=== PATIENT | female | born 1970 | race Two or more races ===

== ENCOUNTER 2018-03-02 09:10 | Day surgery (SDC) | payer OTHER ==
[2018-03-02] VITALS (11 sets, daily range): BP systolic 99–127; BP diastolic 51–66
[~2018-03-02] VITALS: Ht 152.4 cm; Wt 54.4 kg
[~2018-03-02 09:10] MED LIST: ADVIL200 M2 ORAL; ceFAZolin 1gm in D5W 55ml IVP ONE; celeBREX 200mg Cap **SURGERY PATIENTS ONLY ORAL ONE; oxyCONTIN 20mg tab ORAL ONE
[2018-03-02] MEDS ORDERED: celeBREX 200mg Cap **SURGERY PATIENTS ONLY ORAL ONE (09:58)
[2018-03-02] MEDS ORDERED: oxyCONTIN 20mg tab ORAL ONE (09:58)
--- NOTE | 2018-03-02 11:08 | Pre-Procedure Note/Attestation ---
Pre-Procedure Note/Attestation Complete Prior to Procedure Planned Procedure: right Procedure Narrative: shoulder arthroscopy, sad Indications for Procedure Pre-Operative Diagnosis: right shoulder impingement Attestation I attest that I discussed the nature of the procedure; its benefits; risks and complications; and alternatives (and the risks and benefits of such alternatives ), prior to the procedure, with the patient (or the patient's legal national sales representative). I attest that, if there was a reasonable possibility of needing a blood transfusion, the patient (or the patient's legal national sales representative) was given the [facility] standardized written summary, pursuant to the [place] Blood Safety Act ([place] Health and Safety Code # 1645, as amended). I attest that I re-evaluated the patient just prior to the surgery and that there has been no change in the patient's H&P, except as documented below: Emanuel Cheng MD Mar 02, 2018 11:08
--- NOTE | 2018-03-02 11:09 | Operative Note - PDOC ---
Operative Note Operative Note Pre-op Diagnosis: right shoulder impingement Procedure: see op report Post-op Diagnosis: same as pre-op plus Operative Findings: consistent w/pre-op dx studies Anesthesia: regional Specimen: none Complications: none Condition: stable Estimated Blood Loss: none Implant(s) used?: No Emanuel Cheng MD Mar 02, 2018 11:09
[2018-03-02] MEDS ORDERED: fentaNYL 100 mcg/2 mL IV ONE (11:43)
[2018-03-02] MEDS ORDERED: Midazolam 2mg/2ml Inj ONE (11:43)
[2018-03-02] MEDS ORDERED: Propofol 200mg/20ml IV ONE (12:34)
[2018-03-02] MEDS ORDERED: EPINEPHrine 1mg/1ml Amp ONE (12:43)
[2018-03-02] MEDS ORDERED: Bupivacaine 0.5% Inj 30 ml vial INJ ONE (12:44)
[2018-03-02] MEDS ORDERED: NS Irrig 4000ml IRRIG ONE ×2 (13:00→13:22)
[2018-03-02] MEDS ORDERED: LR 1000ml ONE (13:00)
[2018-03-02] MEDS ORDERED: LR 1000ml 1,000 ML IVLG SCH (13:50)
--- NOTE | 2018-03-02 13:50 | Anethesia Preoperative Eval ---
Anesthesia Pre-op PMH/ROS General Date of Evaluation: Mar 02, 2018 Time of Evaluation: 12:40 Anesthesiologist: Anh ASA Score: ASA 2 Mallampati Score Class I : Soft palate, uvula, fauces, pillars visible Class II: Soft palate, uvula, fauces visible Class III: Soft palate, base of uvula visible Class IV: Only hard plate visible Mallampati Classification: Class II Surgeon: Prosper Diagnosis: R shoulder pain Surgical Procedure: R shoulder scope Anesthesia History: none Family History: no anesthesia problems Allergies: Coded Allergies: No Known Allergies (Unverified , 03/02/18) Past Medical History Cardiovascular: Denies: HTN, CAD, [place], valve dz, arrhythmia, other Pulmonary: Denies: asthma, COPD, MICHAEL, other Gastrointestinal/Genitourinary: Reports: GERD; Denies: CRI, ESRD, other Neurologic/Psychiatric: Denies: dementia, CVA, depression/anxiety, TIA, other Endocrine: Denies: DM, hypothyroidism, steroids, other HEENT: Denies: cataract (L), cataract (R), glaucoma, ELEM (L), ELEM (R), other Hematology/Immune: Reports: anemia - mild; Denies: DVT, bleeding disorder, other Musculoskeletal/Integumentary: Denies: OA, RA, DJD, DDD, edema, other PMH Narrative: as above PSxH Narrative: C section x 3 Anesthesia Pre-op Phys. Exam Physician Exam Last Vital Signs Date Time Temp Pulse Resp B/P (MAP) Pulse Ox O2 Delivery O2 Flow Rate FiO2 03/02/18 09:42 Room Air 03/02/18 09:40 97.2 81 18 120/51 (74) 99 97.2 Constitutional: NAD Neurologic: CN 2-12 intact Cardiovascular: RRR, no M/R/G Respiratory: CTA Gastrointestinal: S/NT/ND Airway Exam Mallampati Score: Class II MO: full Neck: flexible ROM: full Teeth: intact Dentures: no upper, no lower Anesthesia Pre-op A/P Labs see chart Urine Test Test 03/02/18 09:20 Urine HCG, Qualitative Negative (NEGATIVE) Studies Pre-op Studies: EKG - NSR Risk Assessment & Plan Assessment: ASA 3 Plan: GA with LMA Status Change Before Surgery: No Pre-Antibiotics Drug: ANcef 1gr Given Within 1 Hr of Incision: Yes Time Given: 13:12 Zafar Kamara MD Mar 02, 2018 13:50
[2018-03-02] MEDS ORDERED: Ketorolac 30mg Inj IV PRN (14:00)
[2018-03-02] MEDS ORDERED: DiphenhydrAMINE 50mg/ml Inj IVP PRN (14:00)
[2018-03-02] MEDS ORDERED: Metoclopramide 10mg/2ml Inj IVP PRN (14:00)
[2018-03-02] MEDS ORDERED: Meperidine 50mg/ml Inj(FOR RIGORS ONLY) IV PRN (14:00)
--- NOTE | 2018-03-02 14:20 | Immediate Post-Op Evaluation ---
Immediate Post-Op Evalulation Immediate Post-Op Evalulation Procedure: R shoulder arthroscopy subacromion decompression Date of Evaluation: Mar 02, 2018 Time of Evaluation: 14:19 IV Fluids: 700 Blood Products: none Estimated Blood Loss: min Urinary Output: none Blood Pressure Systolic: 104 Blood Pressure Diastolic: 53 Pulse Rate: 92 Respiratory Rate: 20 O2 Sat by Pulse Oximetry: 99 Temperature (Fahrenheit): 97.6 Pain Score (1-10): 2 Nausea: No Vomiting: No Complications none Patient Status: reacts, patent, none Hydration Status: adequate Zafar Kamara MD Mar 02, 2018 14:20
--- NOTE | 2018-03-02 15:29 | 48 Hour Post Anesthesia Eval ---
Post Anesthesia Evaluation Procedure: R shoulder arthroscopy subacromion decompression Date of Evaluation: Mar 02, 2018 Time of Evaluation: 15:28 Blood Pressure Systolic: 126 0: 72 Pulse Rate: 68 Respiratory Rate: 20 Temperature (Fahrenheit): 97.6 O2 Sat by Pulse Oximetry: 98 Airway: patent Nausea: No Vomiting: No Pain Intensity: 1 Hydration Status: adequate Cardiopulmonary Status: stable Mental Status/LOC: patient returned to baseline Follow-up Care/Observations: n/a Post-Anesthesia Complications: none Follow-up care needed: ready to discharge Zafar Kamara MD Mar 02, 2018 15:29
--- NOTE | 2018-03-02 18:00 | Operative Note - Dictated ---
DATE OF OPERATION: 03/02/2018 PREOPERATIVE DIAGNOSIS: Right shoulder traumatic impingement syndrome. POSTOPERATIVE DIAGNOSIS: Right shoulder traumatic impingement syndrome. PROCEDURES: 1. Right shoulder diagnostic arthroscopy. 2. Right shoulder subacromial decompression, bursectomy, and release of CA ligament. SURGEON: Emanuel Cheng M.D. ANESTHESIA: Interscalene with general. INDICATION FOR PROCEDURE: The patient is a pleasant female who has had continued progressive right shoulder pain, difficulty with overhead activities, and nighttime pain. She elected to undergo right shoulder diagnostic arthroscopy, possible subacromial decompression, bursectomy. Risks, limitations, expectations, and complications of the procedure were discussed in detail. All questions were addressed. DESCRIPTION OF PROCEDURE: After informed consent was obtained, the patient was brought to the operating room. The patient was placed under general anesthesia and interscalene anesthetic. The patient was then carefully placed in beach-chair position. Right shoulder was prepped and draped in sterile manner. Time-out was performed. Posterolateral stab incision was then made. Trocar was introduced into the glenohumeral joint. Systematic tour of the shoulder was performed. No significant chondral damage. The anterior labrum appeared to be intact along with the subscapularis. The superior labrum was intact along with the biceps tendon and the undersurface of the rotator cuff. The camera was then placed in the subacromial space. The undersurface of the acromion was identified. There was some hypertrophic bursal tissue which was removed with the ArthroCare and shaver. The undersurface of the acromion was identified. Acromioplasty was started from lateral to medial and completed from posterior to anterior. Once that was done, the camera was then placed in the lateral viewing portal. A complete bursectomy posteriorly was performed. Once that was done, the instruments were removed. Portal sites were closed with 3-0 Monocryl sutures. Compression dressing was applied. The patient was awoken and taken to recovery room with stable vital signs. ESTIMATED BLOOD LOSS: None. COMPLICATIONS: None. SPECIMENS: None. IMPLANTS: None. Emanuel Cheng M.D. DR: Liana JOB#: [id number] CC:
[2018-03-02] MEDS ORDERED: HYDROmorphone 1mg/ml Carpuject SUBQ PRN (22:01)
[2018-03-02] MEDS ORDERED: Norco 5mg/325mg tab ORAL PRN (22:01)
[2018-03-02] MEDS ORDERED: Tylenol #3 tab (300mg/30mg) ORAL PRN (22:01)
[2018-03-02] MEDS ORDERED: D5 1/2NS 1,000 ML IV SCH (22:01)
== END 2018-03-02 16:30 | disposition home or self-care (01) ==
LOC: SUR 09:10
DX: M75.41 Impingement syndrome of right shoulder (principal); K21.9 Gastro-esophageal reflux disease without esophagitis; D64.9 Anemia, unspecified
CPT/HCPCS: 29822; 81025; J0171; J0690; J2250; J2405; J2704; J2765; J3010; J3490; 94003; 94150

== ENCOUNTER 2019-11-15 10:09 | Day surgery (SDC) | payer OTHER ==
[~2019-11-15] VITALS: Ht 152.4 cm; Wt 49.0 kg
[2019-11-15] VITALS (10 sets, daily range): BP systolic 112–124; BP diastolic 51–74
--- NOTE | 2019-11-15 07:19 | Operative Note - PDOC ---
Operative Note Operative Note Pre-op Diagnosis: left ankle internal derangement Procedure: see op report Post-op Diagnosis: same as pre-op plus Operative Findings: consistent w/pre-op dx studies Anesthesia: MAC Specimen: none Complications: none Condition: stable Estimated Blood Loss: none Implant(s) used?: No Emanuel Cheng MD November 15, 2019 07:19
--- NOTE | 2019-11-15 07:19 | Pre-Procedure Note/Attestation ---
Pre-Procedure Note/Attestation Complete Prior to Procedure Planned Procedure: left Procedure Narrative: ankle arthroscopy, synovectomy Indications for Procedure Pre-Operative Diagnosis: left ankle internal derangement Attestation I attest that I discussed the nature of the procedure; its benefits; risks and complications; and alternatives (and the risks and benefits of such alternatives ), prior to the procedure, with the patient (or the patient's legal canvas products sales representative). I attest that, if there was a reasonable possibility of needing a blood transfusion, the patient (or the patient's legal canvas products sales representative) was given the [facility] standardized written summary, pursuant to the [place] Blood Safety Act ([place] Health and Safety Code # 1645, as amended). I attest that I re-evaluated the patient just prior to the surgery and that there has been no change in the patient's H&P, except as documented below: Emanuel Cheng MD November 15, 2019 07:19
[~2019-11-15 10:09] MED LIST changes: +D5 1/2NS 1,000 ML IV SCH; +HYDROcodone/Acetamin 5/325 tab ORAL PRN; +HYDROmorphone 1mg/ml Carpuject SUBQ PRN; +Tylenol #3 tab (300mg/30mg) ORAL PRN; +ceFAZolin 1gm IVPB IVPB ONE; -ceFAZolin 1gm in D5W 55ml IVP ONE
[2019-11-15] MEDS ORDERED: celeBREX 200mg Cap **SURGERY PATIENTS ONLY ORAL ONE (11:23)
[2019-11-15] MEDS ORDERED: oxyCONTIN 20mg tab ORAL ONE (11:23)
[2019-11-15] MEDS ORDERED: Midazolam 2mg/2ml Inj ONE (13:59)
[2019-11-15] MEDS ORDERED: fentaNYL 100 mcg/2 mL IV ONE (13:59)
[2019-11-15] MEDS ORDERED: LR 1000ml ONE (14:00)
[2019-11-15] MEDS ORDERED: Metoclopramide 10mg/2ml Inj ONE (14:00)
[2019-11-15] MEDS ORDERED: Kenalog-40 1ml Vial ONE (14:08)
[2019-11-15] MEDS ORDERED: Ketorolac 30mg Inj ONE (14:08)
[2019-11-15] MEDS ORDERED: Duramorph PF 5mg/10ml amp ONE (14:08)
[2019-11-15] MEDS ORDERED: Bupivacaine 0.5% Inj 30 ml vial INJ ONE (14:09)
[2019-11-15] MEDS ORDERED: Lidocaine 1% 10mg/ml/Epi 0.005mg/ml 30ml vial INJ ONE (14:09)
[2019-11-15] MEDS ORDERED: Lidocaine 1% MPF 10mg/ml 5ml ONE (14:47)
[2019-11-15] MEDS ORDERED: Glycopyrrolate 0.2mg/ml 1ml Vial ONE (14:47)
--- NOTE | 2019-11-15 14:55 | Anethesia Preoperative Eval ---
Anesthesia Pre-op PMH/ROS General Date of Evaluation: November 15, 2019 Time of Evaluation: 14:54 Anesthesiologist: adelaide ASA Score: ASA 2 Mallampati Score Class I : Soft palate, uvula, fauces, pillars visible Class II: Soft palate, uvula, fauces visible Class III: Soft palate, base of uvula visible Class IV: Only hard plate visible Mallampati Classification: Class II Surgeon: victoria Diagnosis: ankle pain Surgical Procedure: left ankle scope Anesthesia History: none Family History: no anesthesia problems Allergies: Coded Allergies: No Known Allergies (Unverified , 11/15/19) Medications: see eMAR Patient NPO?: Yes NPO Date: November 15, 2019 NPO Time: 00:01 Past Medical History Cardiovascular: Denies: HTN, CAD, [place], valve dz, arrhythmia, other Pulmonary: Denies: asthma, COPD, MICHAEL, other Gastrointestinal/Genitourinary: Reports: GERD; Denies: CRI, ESRD, other Neurologic/Psychiatric: Denies: dementia, CVA, depression/anxiety, TIA, other Endocrine: Denies: DM, hypothyroidism, steroids, other HEENT: Denies: cataract (L), cataract (R), glaucoma, WASHOE (L), WASHOE (R), other Hematology/Immune: Reports: anemia; Denies: DVT, bleeding disorder, other Musculoskeletal/Integumentary: Denies: OA, RA, DJD, DDD, edema, other PSxH Narrative: SHOULDER SCOPE; C/S Anesthesia Pre-op Phys. Exam Physician Exam Last Vital Signs Date Time Temp Pulse Resp B/P (MAP) Pulse Ox O2 Delivery O2 Flow Rate FiO2 11/15/19 11:07 98.8 78 16 112/74 100 Room Air Constitutional: NAD Neurologic: CN 2-12 intact Cardiovascular: RRR Respiratory: CTA Gastrointestinal: S/NT/ND Airway Exam Mallampati Classification 2 Mallampati Score: Class II MO: full ROM: full Dentures: no upper, no lower Anesthesia Pre-op A/P Labs Urine Test Test 11/15/19 10:15 Urine HCG, Qualitative Negative (NEGATIVE) Studies Pre-op Studies: EKG - sr Risk Assessment & Plan Plan: general LMA Status Change Before Surgery: No Pre-Antibiotics Drug: ancef Given Within 1 Hr of Incision: Yes Time Given: 14:30 Tarrillion,Lina Jesus COMPLIANCE OFFICER November 15, 2019 14:55
[2019-11-15] MEDS ORDERED: NS Irrig 4000ml IRRIG ONE (14:58)
[2019-11-15] MEDS ORDERED: fentaNYL 100 mcg/2 mL IV PRN (15:00)
[2019-11-15] MEDS ORDERED: Metoclopramide 10mg/2ml Inj IVP PRN (15:00)
--- NOTE | 2019-11-15 15:20 | Immediate Post-Op Evaluation ---
Immediate Post-Op Evalulation Immediate Post-Op Evalulation Procedure: left ankle scope Date of Evaluation: November 15, 2019 Time of Evaluation: 15:20 IV Fluids: 600 Blood Pressure Systolic: 140 Blood Pressure Diastolic: 60 Pulse Rate: 70 Respiratory Rate: 14 O2 Sat by Pulse Oximetry: 98 Temperature (Fahrenheit): 97.5 Nausea: No Vomiting: No Complications none Patient Status: awake, reacts, patent Hydration Status: adequate Drug: ancef Given Within 1 Hr of Incision: Yes Time Given: 14:30 Lina Chacon CRNA November 15, 2019 15:20
--- NOTE | 2019-11-15 22:00 | Operative Note - Dictated ---
DATE OF OPERATION: 11/15/2019 PREOPERATIVE DIAGNOSIS: Left ankle soft tissue impingement. POSTOPERATIVE DIAGNOSES: 1. Left ankle soft tissue impingement. 2. Grade 1 chondral damage, anterior distal tibia plafond. PROCEDURES: 1. Left ankle diagnostic arthroscopy and synovectomy to her left ankle. 2. Chondroplasty distal tibia. SURGEON: Emanuel Cheng MD ANESTHESIA: MAC with local. INDICATION FOR PROCEDURE: The patient is a pleasant female who has had a significant ankle injury, subsequently had evidence of lateral ligament complex destruction and continued pain in the anterolateral gutter, although she had showed some soft tissue impingement that continued to cause the symptom. Therefore, she elected to undergo left ankle arthroscopy, synovectomy, and possible chondroplasty. Risks, limitations, expectations, and complications related to the procedure were discussed in detail. All questions addressed. DESCRIPTION OF PROCEDURE: After informed consent was obtained, patient was taken to the operating room. Patient was placed under monitored anesthesia control. Left leg was prepped and draped in sterile manner. Time-out was performed. The anchor was then placed in the traction unit. The needle was then placed medial to the tibialis anterior tendon. Once position was confirmed, the skin was incised. Blunt dissection down to the capsule was performed. Trocar introduced into the ankle joint. There is some hypertrophic synovial tissue in lateral gutter and lateral working portal was then established using inside-out technique. Once adequate position was confirmed using needle, skin was incised. Blunt dissection into the capsule was performed. Once this was done, synovectomy of the anterolateral gutter was performed. Synovectomy was continued anteriorly. Once the synovectomy was completed, the camera was placed through the lateral working portal and the synovectomy extending into the medial gutter was completed. Once this was done, systematic tour of the ankle was performed. The gutters were now free of any soft tissue impingement. There is a grade 2 chondral damage in the middle of the tibia anteriorly. No gross chondral flaps. At this point, the instruments were removed. Sutures and posterior splint was applied. The patient was awoken and taken to recovery room with stable vital signs. ESTIMATED BLOOD LOSS: None. COMPLICATIONS: None. SPECIMENS: None. IMPLANTS: None. Emanuel Cheng M.D. DR: JEFF JOB#: [id number] CC: MACRINA
== END 2019-11-15 16:55 | disposition home or self-care (01) ==
LOC: SUR 10:09
DX: M25.872 Other specified joint disorders, left ankle and foot (principal); M24.10 Other articular cartilage disorders, unspecified site; K21.9 Gastro-esophageal reflux disease without esophagitis
CPT/HCPCS: 29895; 81025; 94003; J0690; J2250; J2405; J2704; J2765; J3010; J3490; J7120; 94150